=== PATIENT | female | born 1965 | race Caucasian/White ===

== ENCOUNTER → 2019-09-23 13:03 | Outpatient (CLI) | payer MEDICAID, SELFPAY ==
[2019-09-23 09:16] VITALS: BMI 48.6
--- NOTE | 2019-09-23 10:00 | EMB_PTH ---
PATIENT: YOLY KIDD LOC: [facility] U#:[id number] AGE/SX: 60/F ROOM: RE09/23/[address]: MAEVE Kruse : 1965 BED: DIS: SPEC #: [id number] RECD: 09/23/19 12:46 STATUS: KIM EDGARD #: [id number] ELIN: 09/23/19 10:[address]: Izabela Cooper NP DEPT: SURGICAL PATHOLOGY RECD BY: Pool Fleming ENTERED: 09/24/19 09:13 SP TYPE: ENDOM BX/C KISHA DR: Dr. Carolynn Huntley MD Tissues: Endometrium, NOS Procedures: Surgery Specimen Level IV HEADER OPERATION: Endometrial biopsy PRE-OP DIAGNOSIS: Abnormal uterine bleeding TISSUE SUBMITTED: Endometrial lining MICROSCOPIC DIAGNOSIS Endometrium, biopsy: Simple cystic hyperplasia without atypia. Focal stromal breakdown. AM:saritha 09/25/19 MICROSCOPIC DESCRIPTION Slides are reviewed. GROSS DESCRIPTION Received is one container labeled with the patient's name and not further designated. The specimen consists of multiple irregular fragments of abbasi-pink soft tissue that in aggregate measure 3 x 2.5 x 0.2 cm. The specimen is totally submitted in one cassette. / SJ:saritha 09/24/19 TC:5 CPT: 64397
[2019-09-25 03:38] LABS: HPV APTIMA, High Risk Negative (Negative)
== END ==
PROVIDERS: PCP Pediatrics; Visit Provider Nurse Practitioner Women's Health
DX: Z12.4 Encounter for screening for malignant neoplasm of cervix (principal); N93.9 Abnormal uterine and vaginal bleeding, unspecified
CPT/HCPCS: 87624; 88175; 88305; G0145

== ENCOUNTER → 2019-09-30 13:15 | Outpatient (CLI) | payer MEDICAID, SELFPAY ==
[2019-09-23 09:16] VITALS: BMI 48.6
--- NOTE | 2019-09-30 13:17 | US_ITS ---
STUDY: ULTRASOUND TRANSVAGINAL CLINICAL: Female, 54 years old. Postmenopausal bleeding. TECHNIQUE: Transvaginal COMPARISON: None. FINDINGS: Normal uterine size measuring 9.0 cm in maximal craniocaudal dimension. Within the anterior uterine fundus there is a 1.8 x 1.9 x 1.3 cm well-circumscribed round echogenic focus that demonstrates mild internal vascularity. Normal endometrial thickness measuring 8.7 mm and is hyperechoic. There are no endometrial masses, and there is no fluid in the endometrial cavity. Normal uterine cervix. There is nonvisualization of the ovaries. There is no free fluid in the pelvis. US/Transvaginal Non- IMPRESSION: Thickened endometrial stripe. 1.8 x 1.9 x 1.3 cm round intramural soft tissue focus within the uterine fundus which may reflect a lipoma leiomyoma or a leiomyoma. Nonvisualization of the ovaries. Electronically Signed: Maddie Pulliam MD at 20:32 EDT Tel , Service support ,
--- NOTE | 2019-09-30 13:17 | BI_ITS ---
MAMMOGRAPHY - BILATERAL SCREENING REASON FOR EXAM: Female, 54 years old. Routine annual screening examination. PERTINENT HISTORY: Non-contributory. TECHNIQUE: Digital bilateral breast collins (3D mammographic acquisition) in the CC and MLO projections. 2-D mediolateral oblique (MLO) and craniocaudad (CC) views of both breasts were obtained. CAD: Full Field Digital Mammography with Computer Added Detection was performed. COMPARISON: None. Baseline examination. FINDINGS: Breast Composition: The breasts are almost entirely fatty. There are no dominant masses or suspicious calcifications. Scattered benign-appearing calcifications. No other significant abnormalities are identified. BI/SCREEN MAMM (CAD) W/COLLINS BILAT IMPRESSION: Negative screening mammogram. Yearly followup mammogram recommended. (A) ASSESSMENT CATEGORY: BIRADS Category 1: Negative. A letter regarding these results will be sent to the patient by the facility within 30 days. Approximately 10% of breast cancers are not detected by mammography. A normal mammogram should not delay biopsy of a clinically suspicious abnormality. [id number] Electronically Signed: Rajan Dominguez, at 15:10 EDT , Service support ,
== END ==
PROVIDERS: PCP Pediatrics; Referring Provider Nurse Practitioner Women's Health; Visit Provider Nurse Practitioner Women's Health
DX: Z12.31 Encounter for screening mammogram for malignant neoplasm of breast (principal); N95.0 Postmenopausal bleeding
CPT/HCPCS: 76830; 77063; 77067

== ENCOUNTER → 2019-11-04 | Outpatient (CLI) | payer MEDICAID, SELFPAY ==
[2019-11-02 13:14] VITALS: BMI 48.2
[2019-11-04 16:23] LABS: Absolute Lymphocyte Count 2.71 X10^3/uL (0.83-4.51); Absolute Neutrophil Count 7.1 X10^3/uL (2.0-7.7); Basophil# 0.04 X10^3/uL; Basophil% 0.4 % (0-1); Eosinophil# 0.27 X10^3/uL; Eosinophils% 2.5 % (0-5); Hematocrit 40.6 % (37-47); Hemoglobin 13.3 g/dL (12.0-15.0); Lymphocyte # 2.71 X10^3/ul (4.0); Lymphocyte % 25.5 % (19-41); Mean Corp Hgb Conc 32.8 g/dL (32-36); Mean Corpuscular Hgb 28.1 pg (27.0-32.0); Mean Corpuscular Volume 85.7 fL (81-99); Mean Platelet Vol. 8.9 fl (6.2-12.0); Monocyte# 0.47 X10^3/uL; Monocyte% 4.4 % (0-10); NRBC Flagged by Analyzer 0 % (0-5); Neutrophil # 7.09 X10^3/uL (2.7-7.7); Neutrophil % 66.7 % (47-70); Platelet Count 308 K/mm3 (150-450); RBC Distribution Width CV 11.9 % (11.6-14.6); RBC Distribution Width SD 36.5 fl (35.1-43.9); Red Blood Count 4.74 M/mm3 (4.2-5.4); White Blood Count 10.6 K/mm3 (4.4-11.0)
== END | disposition home or self-care (01) ==
LOC: LAB 15:56
PROVIDERS: PCP Pediatrics; Referring Provider Obstetrics & Gynecology; Visit Provider Obstetrics & Gynecology
DX: Z01.818 Encounter for other preprocedural examination (principal)
CPT/HCPCS: 36415; 85025; 86850; 86900; 86901

== ENCOUNTER 2019-11-10 07:05 | Day surgery (SDC) | payer MEDICAID, SELFPAY ==
[2019-09-23 09:16] VITALS: BMI 48.6
[2019-11-02 13:14] VITALS: BMI 48.2
[2019-11-10] VITALS (7 sets, daily range): BP systolic 117–164; BP diastolic 72–90; PULSE 73–90; RESP 16–18; TEMP 35.9–36.9; O2SAT 92–98; BMI 47.7
--- NOTE | 2019-11-10 | EMB_PTH ---
PATIENT: YOLY KIDD [place] [facility] [place][id number] AGE/SX: 54/F ROOM: RE11/10/[address]: Dr. Angela See MD : 1965 BED: DIS: 11/10/2019 SPEC #: [id number] RECD: 11/10/19 11:59 STATUS: KIM EDGARD #: [id number] ELIN: 11/10/19 00:[address]: Angela See DEPT: SURGICAL PATHOLOGY RECD BY: Daniel Alexander ENTERED: 11/10/19 11:59 SP TYPE: ENDOM BX/C KISHA DR: Dr. Carolynn Huntley MD Tissues: Endometrium, NOS Procedures: Surgery Specimen Level IV HEADER OPERATION: Hysteroscopy, D & C PRE-OP DIAGNOSIS: Postmenopausal bleeding, cystic endometrial hyperplasia TISSUE SUBMITTED: Endometrial curettings MICROSCOPIC DIAGNOSIS Endometrial curettings: Proliferative endometrium. See comment. TONI:saritha 11/11/19 COMMENT Please make reference to previous specimen ([id number]) endometrium, biopsy with diagnosis of simple cystic hyperplasia without atypia and focal stromal breakdown. Slides are reviewed again. Case has been reviewed in consultation with Dr. Deal who concurs with the above diagnosis. IDC:AM MICROSCOPIC DESCRIPTION Slides are reviewed. GROSS DESCRIPTION Received in fixative is one container labeled with the patient's name and designated endometrial curettings. The specimen consists of multiple fragments of hemorrhagic soft tissue mixed with blood clot that in aggregate measure 3 x 2.5 x 0.3 cm. The specimen is totally submitted in one cassette. / TONI:saritha 11/10/19 TC:5 CPT: 90234
--- NOTE | 2019-11-10 04:32 | HP.PCM_ITS ---
- Problem List (1) Cystic endometrial hyperplasia Status: Acute Comment: without atypia (2) Postmenopausal bleeding Status: Acute Comment: US done, abnl biopsy. plan d and c hysteroscopy. declines IUD plan Aygestin after surgery (3) Fatty liver Status: Acute (4) Asthma Status: Acute (5) Migraine headache without aura Status: Acute (6) DM type 2 (diabetes mellitus, type 2) Status: Acute History and Physical Date of Admission: 11/10/19 Intake Vital Signs 11/02/19 Height 5 ft 5 in 11/02/19 Weight: 290 lb 2 oz 11/02/19 BMI 48.2 11/02/19 BP 168/92 H 11/02/19 BMI 48.6 Intake Visit Reasons: pr eop Piecer Required: No Is patient in pain?: No Allergies acetaminophen [From Vicodin] Adverse Reaction (Severe, Verified 11/02/19 13:14) extreme migraine hydrocodone [From Vicodin] Adverse Reaction (Severe, Verified 11/02/19 13:14) extreme migraine aluminum Adverse Reaction (Intermediate, Verified 11/02/19 13:14) GI pain/rash codeine Adverse Reaction (Intermediate, Verified 11/02/19 13:14) headache/nausea cefaclor [From Ceclor] Adverse Reaction (Unknown, Verified 11/02/19 13:14) unknown guaifenesin [From G Tussin AC] Adverse Reaction (Unknown, Verified 11/02/19 13:14) unknown oxycodone Adverse Reaction (Verified 11/02/19 13:14) headache/nausea Medications glimepiride 2 mg tablet 2 mg PO DAILY 09/23/19 [History Confirmed 11/02/19] ketorolac 0.5 % eye drops 1 drp OPHTHALMIC Q6H 09/23/19 [History Confirmed 10/05 01/23] liraglutide 0.6 mg/0.1 mL (18 mg/3 mL) subcutaneous pen injector 0.6 mg SC DAILY 09/23/19 [History Confirmed 11/02/19] liraglutide 0.6 mg/0.1 mL (18 mg/3 mL) subcutaneous pen injector 1.2 mg SC DAILY 09/23/19 [History Confirmed 11/02/19] metformin 1,000 mg tablet 1,000 mg PO BID 09/23/19 [History Confirmed 11/02/19] prednisolone acetate 1 % eye drops,suspension 1 drp OPHTHALMIC TID 09/23/19 [History Confirmed 11/02/19] atorvastatin 10 mg tablet 10 mg PO DAILY 11/02/19 [History Confirmed 11/02/19] Post menopausal: No Patient : No : No PFSH Medical History ACL (anterior cruciate ligament) tear (Acute) ARF (acute renal failure) (Acute) Asthma (Acute) delivery delivered (Acute) Diabetes type 2, controlled (Acute) Fatty liver (Acute) Fatty tumor (Acute) Migraine (Acute) Right ankle injury (Acute) Surgical History H/O arthroscopic knee surgery (Acute) History of appendectomy (Acute) History of meniscectomy of left knee (Acute) History of tonsillectomy and adenoidectomy (Acute) Social History (Updated 11/02/19 @ 13:[address] Angela See MD) number of children: 3 current occupational status: unemployed Smoking Status: Never smoker alcohol intake: current alcohol intake frequency: holidays/special occasions only substance use type: does not use diet: other seatbelt use: always do you feel safe at home: Yes additional social history: Pts 6 months ago HPI pr eop: Details: YOLY KIDD is a 54 year old who presents for preop visit. she has had irregular bleeding, and had endometrial hyperplasia on an EMB. Female Reproductive History Questions: Sexually active: No Pregancy History 3 Elective abortions Hx Para 3 Spontaneous abortions Hx # Term Pregnancies 3 Ectopic pregnancies Hx # Pregnancies Multiple births # of living children 3 Past Pregnancies Del. Date Name GA/Weeks Outcome Route Bth Weight Gen Labor Lgth Anesthesia Del Locatn Provider FOB Unknown Cata 1992 Unknown Srinivas 1995 Unknown Janet 1997 ROS Const Constitutional: Reports system reviewed and no additional complaints, except as docu Eyes Eyes: Reports system reviewed and no additional complaints, except as docu Cardio Card: Denies chest pain Resp Resp: Denies cough or dyspnea GI GI: Denies abdominal pain or change in bowel habits : Reports as per HPI; denies nipple discharge Skin Skin/Breast: Denies change in hair, breast lump, breast pain, breast skin changes or nipple discharge Exam Const General: cooperative Nutritional Appearance: obese Orientation: oriented x3 [facility] Head: normal to inspection, normocephalic Ears: hearing grossly normal bilaterally, external ears normal Nose: external nose normal, nares normal Face and sinus: normal facial exam Neck Neck: normal visual inspection, trachea midline Thyroid: thyroid normal Chest Chest palpation & inspection: normal inspection of the chest Resp Effort & Inspection: normal respiratory effort Auscultation: clear to auscultation bilaterally Cardio Rate: regular rate Rhythm: regular rhythm Heart Sounds: S1 normal, S2 normal GI Inspection: normal to inspection, non-distended Palpation: soft, no hepatosplenomegaly General: bladder normal to palpation External Female Exam: normal external appearance, normal appearance of the ur ethra Urethra: normal appearance of the urethra, normal palpation, no discharge Speculum Exam - Vagina: normal appearance of the vagina (small amount dark blood in vault) Speculum Exam - Cervix: normal appearance of the cervix Bimanual Exam- Vagina & Uterus: normal bimanual exam, uterine size normal (but difficult to assess due to body habitus), bladder normal to palpation Bimanual Exam- Adnexa, other: normal adnexae, pelvic support normal Pelvic Support: normal Musc Cervical Spine: other Other: gross motor intact no deficits, full bilateral strength Skin General: no rashes or lesions noted Neuro General: alert, awake, moves all extremities, no focal motor deficits Motor: muscle tone normal throughout Extrem General: normal to inspection, no pedal edema Psych Appearance: grossly normal Mental Status: mental status grossly normal Affect: normal affect Speech and Movement: speech and movement normal Assessment & Plan Problems 1. Postmenopausal bleeding N95.0 US done, abnl biopsy. plan d and c hysteroscopy. declines IUD plan Aygestin after surgery 2. Cystic endometrial hyperplasia N85.00 without atypia Plan Problem list updated and treatment plans were reviewed with the patient and relevant educational handouts given. See problem list details for specific plan information. After discussing the patient's diagnosis and treatment plan options, patient wishes to proceed with surgical management. I have discussed with the patient the risks, benefits, and alternatives of the procedure which include but are not limited to risks of anesthesia, bleeding, infection, possible damage to bowel, bladder, or surrounding vasculature which could lead to additional surgery to evaluate any complications. Patient agrees to procedure and wishes to proceed. ACOG/uptodate references given for additional information regarding procedure. Coding Level of Care Code No Charge Diagnoses Postmenopausal bleeding N95.0 Cystic endometrial hyperplasia N85.00 UPDATE- I have seen the patient and performed any clinically relevant updates to the history and physical exam. Angela See MD
[2019-11-10] MEDS: Lactated Ringers 1,000 ML 100 ML IV (07:44)
--- NOTE | 2019-11-10 07:48 | PCM.OPRPT ---
Problem List (1) Cystic endometrial hyperplasia Status: Acute Comment: without atypia (2) Postmenopausal bleeding Status: Acute Comment: US done, abnl biopsy. plan d and c hysteroscopy. declines IUD plan Aygestin after surgery (3) Fatty liver Status: Acute (4) Asthma Status: Acute (5) Migraine headache without aura Status: Acute (6) DM type 2 (diabetes mellitus, type 2) Status: Acute Report of Operation Date of Procedure: 11/10/19 Pre-Operative Diagnosis: endometrial hyperplasia Post-Operative Diagnosis: same Surgery/Procedure Performed:: d and c hysteroscopy Description of Surgical Findings:: polypoid lining Type of Anesthesia:: Local MAC Special Medications: none Specimen's removed: emc Drains: none Estimated Blood Loss (mL): minimal Fluids Replaced: crystalloid Description of Procedure: Patient was prepped and draped in a normal sterile fashion under MAC anesthesia. A weighted speculum was placed in the vagina and the anterior lip of the cervix was grasped with a single-tooth tenaculum. A paracervical block was placed with 1% lidocaine. Cervix was progressively dilated to allow passage of a 5 mm hysteroscope. The lining was fully visualized and noted to have a thickened polypoid appearance no gross abnormalities . Uterine sounded to 8 cm. significant uterine descent and good vaginal access, moderate cystocele noted. Curettage was performed and moderate amount of tissue removed , sent to pathology. All instruments were removed from the vagina and excellent hemostasis was noted. Patient was awoken and taken to recovery in stable condition. Grafts/Implants Used: none - Admit VTE Documentation VTE Present on Admission: No VTE Mechan Device Prophylaxis: SCD's Multi Select Codes - Urinary/Genital Urinary/Genital CPT Codes: 77546 Non-ob D&C, 60707 Hysteroscopy, diagnostic
--- NOTE | 2019-11-10 07:49 | DCINST_ITS ---
Discharge Diet: No Restrictions Discharge Activity: Return to Normal Activity, May Shower, May Take a Tub Bath Allergies/Adverse Reactions: Allergies empagliflozin [From Jardiance] Allergy (Verified 11/10/19 07:31) Nausea/Vom/Diarrhea nickel Allergy (Verified 11/10/19 07:31) Rash acetaminophen [From Vicodin] Adverse Reaction (Severe, Verified 11/10/19 07:31) extreme migraine hydrocodone [From Vicodin] Adverse Reaction (Severe, Verified 11/10/19 07:31) extreme migraine aluminum Adverse Reaction (Intermediate, Verified 11/10/19 07:31) GI pain/rash codeine Adverse Reaction (Intermediate, Verified 11/10/19 07:31) headache/nausea cefaclor [From Ceclor] Adverse Reaction (Unknown, Verified 11/10/19 07:31) unknown guaifenesin [From G Tussin AC] Adverse Reaction (Unknown, Verified 11/10/19 07:31) unknown butabarbital Adverse Reaction (Verified 11/10/19 07:32) NEEDS FOLLOW-UP oxycodone Adverse Reaction (Verified 11/10/19 07:31) headache/nausea Medications to take at Discharge glimepiride 2 mg tablet 2 mg PO DAILY 09/23/19 metformin 1,000 mg tablet 1,000 mg PO BID 09/23/19 atorvastatin 10 mg tablet 10 mg PO DAILY 11/02/19 Aspirin/Acetaminophen/Caffeine [Excedrin Migraine Caplet] 2 ea PO PRN PRN 11/03/19 Azelastine HCl [Astelin] 1 spray NASAL PRN PRN 11/03/19 Gabapentin [Neurontin] 300 mg PO DAILY 11/03/19 Liraglutide [Victoza] 1.8 mg SQ DAILY 11/03/19 Magnesium Oxide [Mag-Oxide] 500 mg PO DAILY 11/03/19 Multivitamin [Multivitamins] 1 ea PO DAILY 11/03/19 Polyethylene Glycol 400 [Blink Tears] 15 ml OP DAILY 11/03/19 Primary Care Physician: Carolynn Huntley MD [Primary Care Provider] - Test Results: Test results from this visit will be discussed in further detail at your follow- up appointment, if applicable. Please Follow Up With: Angela See MD - [phone]
[2019-11-10 07:55] LABS: Bedside Glucose 160 mg/dL (70-110)
[2019-11-10] MEDS: Ondansetron 4 MG/2 ML Vial IM (08:43)
== END 2019-11-10 10:24 | disposition home or self-care (01) ==
LOC: SDC 07:05 → AC 07:06
PROVIDERS: Anesthesiology; PCP Pediatrics; Referring Provider Obstetrics & Gynecology; Visit Provider Obstetrics & Gynecology
PROC: 0UDB8ZZ Extraction of Endometrium, Via Natural or Artificial Opening Endoscopic (ICD-10-PCS; CPT 58558; principal; 2019-11-10 08:20)
DX: N85.00 Endometrial hyperplasia, unspecified (principal); N95.0 Postmenopausal bleeding; J45.909 Unspecified asthma, uncomplicated; E11.9 Type 2 diabetes mellitus without complications; E66.9 Obesity, unspecified; Z68.42 Body mass index [BMI] 45.0-49.9, adult; E78.00 Pure hypercholesterolemia, unspecified; Z11.59 Encounter for screening for other viral diseases; Z79.84 Long term (current) use of oral hypoglycemic drugs; Z79.899 Other long term (current) drug therapy
CPT/HCPCS: 00952; 58558; 82962; 87635; 88305; G2023; J7120; J2405; U0003

== ENCOUNTER → 2020-08-18 | Outpatient (CLI) | payer MEDICAID, SELFPAY ==
--- NOTE | 2020-08-18 | EMB_PTH ---
PATIENT: YOLY KIDD LOC: [facility] U#:[id number] AGE/SX: 55/F ROOM: RE08/18/[address]: Dr. Angela See MD : 1965 BED: DIS: 08/18/2020 SPEC #: [id number] RECD: 08/18/20 16:28 STATUS: KIM EDGARD #: [id number] ELIN: 08/18/20 00:[address]: Angela See DEPT: SURGICAL PATHOLOGY RECD BY: Malgorzata Peck ENTERED: 08/19/20 07:00 SP TYPE: ENDOM BX/C KISHA DR: Dr. Carolynn Huntley MD Tissues: Endometrium, NOS Procedures: Surgery Specimen Level IV HEADER OPERATION: Endometrial biopsy PRE-OP DIAGNOSIS: Cystic endometrial hyperplasia TISSUE SUBMITTED: Endometrial biopsy MICROSCOPIC DIAGNOSIS Endometrial biopsy: Scant strips of benign endometrial epithelium. Negative for hyperplasia. See comment. TONI:saritha 08/22/2020 COMMENT Clinical correlation and appropriate follow up are necessary. Please make reference to previous specimens ([id number]) endometrium, biopsy with diagnosis of simple cystic hyperplasia without atypia and focal stromal breakdown and ([id number]) endometrial curettings with diagnosis of proliferative endometrium. MICROSCOPIC DESCRIPTION Slides are reviewed. GROSS DESCRIPTION Received is one container labeled with the patient's name and not further designated. The specimen consists of a scant amount of soft tissue. The specimen is totally submitted for cell block preparation. / TONI:saritha 08/19/20 TC:4 CPT: 35510
[2020-08-18 15:09] VITALS: BMI 43.3
== END | disposition home or self-care (01) ==
LOC: LABSPEC 16:28
PROVIDERS: PCP Pediatrics; Referring Provider Obstetrics & Gynecology; Visit Provider Obstetrics & Gynecology
DX: N85.00 Endometrial hyperplasia, unspecified (principal)
CPT/HCPCS: 88305

== ENCOUNTER → 2021-03-02 | Outpatient (CLI) | payer MEDICAID, SELFPAY ==
--- NOTE | 2021-03-02 | EMB_PTH ---
PATIENT: YOLY KIDD LOC: [facility] U#:[id number] AGE/SX: 56/F ROOM: RE03/02/[address]: Dr. Angela See MD : 1965 BED: DIS: 03/02/2021 SPEC #: [id number] RECD: 03/02/21 13:43 STATUS: KIM REJessica #: [id number] ELIN: 03/02/21 00:[address]: Angela See DEPT: SURGICAL PATHOLOGY RECD BY: Jennifer Mckeon ENTERED: 03/03/21 07:39 SP TYPE: ENDOM BX/C KISHA DR: Dr. Carolynn Huntley MD Tissues: Endometrium, NOS Procedures: Surgery Specimen Level IV HEADER OPERATION: Endometrial biopsy PRE-OP DIAGNOSIS: Cyst endometrial hyperplasia TISSUE SUBMITTED: Endometrial biopsy MICROSCOPIC DIAGNOSIS Endometrial biopsy: Strips of benign endometrial epithelium and scant fragment of superficial benign endometrial tissue, consistent with atrophic endometrium. Negative for hyperplasia. See comment. SJ:rg 03/06/2021 COMMENT Please make reference to previous specimens ([id number]) endometrial biopsy with diagnosis of ?scant strips of benign endometrial epithelium, negative for hyperplasia? and ([id number]) endometrial biopsy with diagnosis of ?simple cystic hyperplasia without atypia? and ([id number]) endometrial curettings with diagnosis of ?proliferative endometrium? MICROSCOPIC DESCRIPTION Slides are reviewed. GROSS DESCRIPTION Received is one container labeled with the patient's name and not further designated. The specimen consists of multiple irregular fragments of abbasi mucoid tissue that in aggregate measure 0.5 x 0.5 x 0.1 cm. The specimen is totally submitted in one cassette. / TONI:saritha 03/03/21 TC:4 CPT: 72152
== END | disposition home or self-care (01) ==
LOC: LABSPEC 14:07
PROVIDERS: PCP Pediatrics; Referring Provider Obstetrics & Gynecology; Visit Provider Obstetrics & Gynecology
DX: N85.8 Other specified noninflammatory disorders of uterus (principal)
CPT/HCPCS: 88305

== ENCOUNTER → 2022-02-06 | Outpatient (CLI) | payer MEDICAID, SELFPAY ==
--- NOTE | 2022-02-06 10:33 | BI_ITS ---
MAMMOGRAPHY - BILATERAL SCREENING REASON FOR EXAM: Female, 57 years old. Routine annual screening examination. PERTINENT HISTORY: Non-contributory. TECHNIQUE: Digital bilateral breast collins (3D mammographic acquisition) in the CC and MLO projections. 2-D mediolateral oblique (MLO) and craniocaudad (CC) views of both breasts were obtained. CAD: Full Field Digital Mammography with Computer Added Detection was performed. COMPARISON: Comparison is made with prior study dated 09/30/2019. FINDINGS: Breast Composition: The breasts are almost entirely fatty. There are no dominant masses or suspicious calcifications. No other significant abnormalities are identified. There has been no significant change since the prior study. BI/SCRN MAMM (CAD)W/COLLINS BILAT IMPRESSION: Stable bilateral screening mammogram. Yearly follow-up mammogram recommended. (A) ASSESSMENT CATEGORY: BIRADS Category 1: Negative. A letter regarding these results will be sent to the patient by the facility within 30 days. Approximately 10% of breast cancers are not detected by mammography. A normal mammogram should not delay biopsy of a clinically suspicious abnormality. [id number] Electronically Signed: Rajan Dominguez MD at 13:16 EDT ,
== END | disposition home or self-care (01) ==
LOC: OPBI 10:31
PROVIDERS: PCP Pediatrics; Visit Provider Obstetrics & Gynecology
DX: Z12.31 Encounter for screening mammogram for malignant neoplasm of breast (principal)
CPT/HCPCS: 77063; 77067

== ENCOUNTER → 2022-03-19 | Outpatient (CLI) | payer MEDICAID, SELFPAY ==
[2022-03-19 11:11] LABS: Hematocrit 41.7 % (37-47); Mean Corp Hgb Conc 33.6 g/dL (32-36); Mean Corpuscular Hgb 27.7 pg (27.0-32.0); Mean Corpuscular Volume 82.4 fL (81-99); Mean Platelet Vol. 8.6 fl (6.2-12.0); Platelet Count 287 K/mm3 (150-450); RBC Distribution Width CV 11.4 % (11.6-14.6); RBC Distribution Width SD 34.1 fl (35.1-43.9); Red Blood Count 5.06 M/mm3 (4.2-5.4); White Blood Count 9.6 K/mm3 (4.4-11.0)
[2022-03-19 11:29] LABS: Anion Gap 4 (5-15); BUN 9 mg/dL (7-18); BUN/Creat Ratio 12.8 RATIO (10-20); Calcium,Total 9.3 mg/dL (8.5-10.1); Chloride 105 mmol/L (98-107); EST Glomerular Filtration Rate 92 mL/min (>60); Est Glom Filt Rate - Afr Amer 111 mL/min (>60); Glucose 141 mg/dL (74-106); Potassium 4.2 mmol/L (3.5-5.1); Sodium Level 138 mmol/L (136-145)
[2022-03-26 16:46] LABS: HPV Reflexed? NOT INDICATED
== END | disposition home or self-care (01) ==
PROVIDERS: PCP Pediatrics; Visit Provider Obstetrics & Gynecology
DX: N95.0 Postmenopausal bleeding (principal); E11.9 Type 2 diabetes mellitus without complications; Z12.4 Encounter for screening for malignant neoplasm of cervix; N89.8 Other specified noninflammatory disorders of vagina
CPT/HCPCS: 80048; 83036; 85027; 87070; 87077; 87086; 87088; 87186; 87205; 88175; G0145

== ENCOUNTER → 2022-03-21 | Outpatient (CLI) | payer MEDICAID, SELFPAY ==
--- NOTE | 2022-03-21 11:39 | US_ITS ---
STUDY: ULTRASOUND OF THE FEMALE PELVIS - COMPLETE REASON FOR EXAM: Female, 57 years old. aub -- SPOTTING- POST MENOPAUSAL BLEEDING -- NO CYCLE FOR A FEW YEARS, NOW SPOTTING -- HC OF D and amp;C 2019 LMP: Postmenopausal TECHNIQUE: Transabdominal and Transvaginal TECHNICAL QUALITY: Adequate. COMPARISON: Pelvic ultrasound September 30, 2019 FINDINGS: The uterus is anteverted and is in a midline position. The uterus measures 9.2 x 5.2 x 3 cm. Normal uterine cervix. The endometrium measures 5 mm in thickness, and is hyperechoic. There is no demonstrated endometrial mass. 1.6 x 1.7 x 1.3 cm heterogeneous fibroid. I.U.D. - The patient does not have an I.U.D. hypoechoic nodule with posterior enhancement measuring 6 x 5 x 5 mm. Right ovary not visualized. The left ovary is visualized. The left ovary measures 1.6 x 1.7 x 1.6 cm. There is no left ovarian cyst or ovarian mass. There is no visualized left adnexal mass or complex lesion. There is normal arterial and normal venous vascularity. There is no fluid in the cul-de-sac. The pre void volume of the bladder was 642 ml. Polycystic ovary disease: No. US/Pelvic (Non ) IMPRESSION: Uterine fibroid. Right ovary not visualized. Cervical nodule requires clinical correlation/pelvic exam. Electronically Signed: Darshan Corona MD at 17:45 EST ,
== END | disposition home or self-care (01) ==
LOC: US 11:38
PROVIDERS: PCP Pediatrics; Visit Provider Obstetrics & Gynecology
DX: N95.0 Postmenopausal bleeding (principal)
CPT/HCPCS: 76830; 76856

== ENCOUNTER 2022-04-17 11:27 | Day surgery (SDC) | payer MEDICAID, SELFPAY ==
--- NOTE | 2022-04-12 09:07 | EKG12_ITS ---
Test Reason : PREOP Blood Pressure : / mmHG Vent. Rate : 087 BPM Atrial Rate : 087 BPM P-R Int : 150 ms QRS Dur : 078 ms QT Int : 338 ms P-R-T Axes : 039 -19 029 degrees QTc Int : 406 ms Normal sinus rhythm Normal ECG Confirmed by KIM LOUIS, SULAIMAN ([id number]), editorial specialist RIMMA DE PAZ ([id number]) on 04/12/2022 2:09:04 PM Referred By: Angela See Confirmed By:KIM ALVAREZ MD
[2022-04-12 10:00] LABS: Absolute Lymphocyte Count 2.44 X10^3/uL (0.83-4.51); Absolute Neutrophil Count 6.8 X10^3/uL (2.0-7.7); Basophil# 0.04 X10^3/uL; Basophil% 0.4 % (0-1); Eosinophil# 0.29 X10^3/uL; Eosinophils% 2.8 % (0-5); Hematocrit 42.7 % (37-47); Hemoglobin 14.1 g/dL (12.0-15.0); Lymphocyte # 2.44 X10^3/ul (0.83-4.51); Lymphocyte % 23.9 % (19-41); Mean Corpuscular Hgb 27.5 pg (27.0-32.0); Mean Corpuscular Volume 83.4 fL (81-99); Mean Platelet Vol. 8.9 fl (6.2-12.0); Monocyte# 0.57 X10^3/uL; Monocyte% 5.6 % (0-10); NRBC Flagged by Analyzer 0 % (0-5); Neutrophil # 6.79 X10^3/uL (2.7-7.7); Neutrophil % 66.7 % (47-70); Platelet Count 298 K/mm3 (150-450); RBC Distribution Width CV 11.7 % (11.6-14.6); RBC Distribution Width SD 35.2 fl (35.1-43.9); Red Blood Count 5.12 M/mm3 (4.2-5.4); White Blood Count 10.2 K/mm3 (4.4-11.0)
[2022-04-12 10:44] LABS: ALB/GLOB Ratio 0.8 RATIO (0.9-2.4); AST(SGOT) 22 U/L (15-37); Alanine Aminotransfer ALT/SGPT 55 U/L (13-56); Albumin, Serum 3.4 g/dL (3.2-5.0); Alkaline Phosphatase 120 U/L (45-117); Anion Gap 7 (5-15); BUN 12 mg/dL (7-18); BUN/Creat Ratio 14.9 RATIO (10-20); Calcium,Total 9.3 mg/dL (8.5-10.1); Chloride 102 mmol/L (98-107); EST Glomerular Filtration Rate 79 mL/min (>60); Est Glom Filt Rate - Afr Amer 95 mL/min (>60); Glucose 200 mg/dL (74-106); Potassium 4.2 mmol/L (3.5-5.1); Protein, Total 7.4 g/dL (6.4-8.2); Sodium Level 135 mmol/L (136-145)
[2022-04-17] VITALS (7 sets, daily range): BP systolic 103–147; BP diastolic 69–92; PULSE 74–90; RESP 16–18; TEMP 36.6–37.1; O2SAT 92–97; BMI 46.2
[2022-04-17 12:22] LABS: Internal QC Validated? YES +Cl - CLEAR BKGD; Pregnancy, Urine Negative Negative
[2022-04-17 12:42] LABS: Absolute Lymphocyte Count 2.49 X10^3/uL (0.83-4.51); Absolute Neutrophil Count 6.3 X10^3/uL (2.0-7.7); Basophil# 0.05 X10^3/uL; Basophil% 0.5 % (0-1); Eosinophil# 0.32 X10^3/uL; Eosinophils% 3.3 % (0-5); Hematocrit 42.7 % (37-47); Lymphocyte # 2.49 X10^3/ul (0.83-4.51); Lymphocyte % 25.7 % (19-41); Mean Corp Hgb Conc 32.8 g/dL (32-36); Mean Corpuscular Hgb 27.2 pg (27.0-32.0); Mean Corpuscular Volume 82.9 fL (81-99); Mean Platelet Vol. 8.7 fl (6.2-12.0); Monocyte# 0.53 X10^3/uL; Monocyte% 5.5 % (0-10); NRBC Flagged by Analyzer 0 % (0-5); Neutrophil # 6.25 X10^3/uL (2.7-7.7); Neutrophil % 64.4 % (47-70); Platelet Count 294 K/mm3 (150-450); RBC Distribution Width CV 11.7 % (11.6-14.6); RBC Distribution Width SD 35.3 fl (35.1-43.9); Red Blood Count 5.15 M/mm3 (4.2-5.4); White Blood Count 9.7 K/mm3 (4.4-11.0)
[2022-04-17 12:56] LABS: Mucous, Urine 0 SEEN /hpf (<or=2+); Red Blood Cells-Urine 0 SEEN /hpf (0-5)
[2022-04-17 13:10] LABS: Bedside Glucose 189 mg/dL (74-106)
--- NOTE | 2022-04-17 13:10 | EMB_PTH ---
PATIENT: YOLY KIDD LOC: [facility] – [place] U#:[id number] AGE/SX: 57/F ROOM: RE04/17/[address]: Dr. Angela See MD : 1965 BED: DIS: 04/17/2022 SPEC #: [id number] RECD: 04/17/22 14:56 STATUS: KIM REJessica #: [id number] ELIN: 04/17/22 13:[address]: Angela See DEPT: SURGICAL PATHOLOGY RECD BY: Malgorzata Peck ENTERED: 04/18/22 09:39 SP TYPE: ENDOM BX/C OTHR DR: MD Dr. Carolynn Montero MD Tissues: Endometrium, NOS Procedures: Surgery Specimen Level IV HEADER OPERATION: Hysteroscopy, dilation and curettage PRE-OP DIAGNOSIS: Abnormal uterine bleeding TISSUE SUBMITTED: Endometrial curettings MICROSCOPIC DIAGNOSIS Endometrial curettings: Proliferative endometrium. Fragments of benign ecto- and endocervical epithelium. See comment. TONI:saritha 04/19/2022 COMMENT Clinical correlation and appropriate follow up are necessary. Please make reference to previous specimen ([id number]) endometrial biopsy with diagnosis of ?simple cystic hyperplasia without atypia. MICROSCOPIC DESCRIPTION Slides are reviewed. GROSS DESCRIPTION Received in fixative is one container labeled with the patient's name and designated endometrial curettings. The specimen consists of multiple fragments of hemorrhagic soft tissue that in aggregate measure 2.5 x 2 x 0.1 cm. The specimen is totally submitted in one cassette. / TONI:saritha 04/18/2022 TC: CPT: 55524
[2022-04-17 13:12] LABS: Color, Urine Yellow (Yellow); Glucose, Dipstick Normal (Normal); Ketone-Dipstick 5 mg/dl (Negative); Leukocyte Esterase-Dipstick 100 /ul (Negative); Nitrite-Dipstick Negative (Negative); Occult Blood-Urine 25 /ul (Negative); Protein-Dipstick 15 mg/dl (Negative); Urine Bilirubin Dipstick Negative (Negative); Urine Clarity Clear (Clear); Urine Urobilinogen Normal (Normal)
[2022-04-17 13:25] LABS: Bacteria 1+ /hpf (None Seen); Squamous Epithelial Cells - UA 0-5 SEEN /hpf (5-10); White Blood Cells 10-25 SEEN /hpf (0-5)
[2022-04-17] MEDS: Lidocaine 1% (30 ml sdv) 30 ML Vial (14:01)
--- NOTE | 2022-04-17 14:08 | HP.PCM_ITS ---
HPI - General HPI Narrative YOLY KIDD, is a 57 F who presents for d and c hysteroscopy for history of hyperplasia and having posmenopausal bleeding. co persistent uti symptoms. [facility] Medical History (Updated 04/11/22 @ 11:07 by Faina Otto) ACL (anterior cruciate ligament) tear Ambulates with cane ARF (acute renal failure) Asthma Cardiology follow-up encounter delivery delivered Diabetes Diabetes type 2, controlled Easy bruising Fatty liver Fatty tumor Heartburn High cholesterol History of IBS Loss of hearing Migraine Non-smoker Osteoarthritis Rheumatoid arthritis Right ankle injury Walker as ambulation aid Wears glasses Home Medications metformin 1,000 mg tablet 1,000 mg PO BID 09/23/19 [History Last Taken Unknown] azelastine 137 mcg (0.1 %) nasal spray aerosol 1 spray NASAL PRN PRN Swelling 11/03/19 [History Last Taken Unknown] glimepiride 2 mg tablet 4 mg PO DAILY 11/23/19 [History Last Taken Unknown] liraglutide 0.6 mg/0.1 mL (18 mg/3 mL) subcutaneous pen injector 1.8 mg subcut DAILY 11/23/19 [History Last Taken Unknown] cetirizine 10 mg tablet 10 mg PO DAILY 04/11/22 [History Last Taken Unknown] clobetasol 0.05 % lotion 1 applic topical 4X/DAY 04/11/22 [History Last Taken Unknown] ubrogepant 100 mg tablet (Ubrelvy) 100 mg PO PRN PRN Headache 04/11/22 [History Last Taken Unknown] Allergy/AdvReac Type Severity Reaction Status Date / Time ciprofloxacin [From Cipro] Allergy Other Verified 04/17/22 12:38 empagliflozin Allergy Nausea/Vom/ Verified 04/17/22 12:38 [From Jardiance] Diarrhea levofloxacin [From Levaquin] Allergy Other Verified 04/17/22 12:38 metoprolol Allergy Chest Verified 04/17/22 12:38 tightness nickel Allergy Rash Verified 04/17/22 12:38 hydrocodone [From Vicodin] AdvReac Severe extreme Verified 04/17/22 12:38 migraine aluminum AdvReac Intermediate GI Verified 04/17/22 12:38 pain/rash codeine AdvReac Intermediate headache/na Verified 04/17/22 12:38 usea cefaclor [From Ceclor] AdvReac Unknown unknown Verified 04/17/22 12:38 guaifenesin AdvReac Unknown unknown Verified 04/17/22 12:38 [From Sudha JESUS] butabarbital AdvReac NEEDS Verified 04/17/22 12:38 FOLLOW-UP oxycodone AdvReac headache/na Verified 04/17/22 12:38 usea Sulfa (Sulfonamide AdvReac Swelling Verified 04/17/22 12:38 Antibiotics) triptans Allergy Mild flushed Uncoded 04/17/22 12:38 Family History Father Blood clot in vein Lung cancer CVA (cerebral vascular accident) Mother Diabetes Hypertension Hyperlipidemia Grandfather Colon cancer Surgical History (Updated 04/11/22 @ 10:45 by Faina Otto) H/O arthroscopic knee surgery History of ankle surgery History of appendectomy History of meniscectomy of left knee History of repair of ACL History of tonsillectomy and adenoidectomy S/P cholecystectomy S/P dilation and curettage (~11/10/19) Social History number of children: 3 current occupational status: unemployed Smoking Status: Never smoker alcohol intake: current alcohol intake frequency: holidays/special occasions only substance use type: does not use diet: other seatbelt use: always do you feel safe at home: Yes additional social history: ROS Constitutional Constitutional: Reports systems reviewed and no addt'l complaints, except as documented; Denies as per HPI, change in weight, fatigue, fever(s), malaise, weakness or other Eyes Eyes: Reports systems reviewed and no addt'l complaints, except as documented; Denies as per HPI, change in vision or other ENT HEENT: Reports systems reviewed and no addt'l complaints, except as documented Respiratory/Chest Respiratory/Chest: Reports systems reviewed and no addt'l complaints, except as documented Gastrointestinal Gastrointestinal: Reports systems reviewed and no addt'l complaints, except as documented and as per HPI Genitourinary Genitourinary: Reports as per HPI Musculoskeletal Musculoskeletal: Reports systems reviewed and no addt'l complaints, except as documented Neurologic Neurologic: Reports systems reviewed and no addt'l complaints, except as documented Psychiatric Psychiatric: Reports systems reviewed and no addt'l complaints, except as documented Endocrine Endocrinology: Reports systems reviewed and no addt'l complaints, except as documented Hematologic/Lymphatic Hematologic/Lymphatic: Reports systems reviewed and no addt'l complaints, except as documented Vital Signs Vital Signs Vital Signs: 04/17/22 12:40 04/17/22 12:40 Temperature 98.2 F Temperature Source Temporal Pulse Rate 87 Respiratory Rate 16 Respiratory Pattern Normal Blood Pressure 147/89 H Blood Pressure Mean 108 Blood Pressure Source Monitor Blood Pressure Position Semi-Fowlers Blood Pressure Location Left Arm Pulse Ox 97 Oxygen Delivery Method Room Air Weight Weight: 128 kg Body Mass Index (BMI) 46.2 Physical Exam Const alert, oriented x3 and no apparent distress HEENT normocephalic Head and Scalp: atraumatic Eyes EOMs intact bilaterally and conjunctivae normal Neck full ROM, no lymphadenopathy, supple and thyroid normal General: trachea midline Lymph Lymphatic: no lymphadenopathy noted Resp normal respiratory effort, no retractions, no use of accessory muscles and clear to auscultation bilaterally Cardio regular rhythm GI normal to inspection, nondistended, normoactive bowel sounds, soft to palpation, non-distended and no masses Inspection: Negative for abdominal distention Back/Spine no CVA tenderness Extremity normal to inspection Skin no rashes or lesions noted Neuro moves all extremities and deep tendon reflexes 2+ bilaterally Psych mental status grossly normal Results Lab / Micro Data Result Diagrams: 04/17/22 12:25 04/12/22 09:20 Labs: Laboratory Results - last 24 hr 04/17/22 12:10: Urine Test Negative 04/17/22 12:10: Urine Color Yellow, Urine Clarity Clear, Urine pH 5.0, Ur Specific [place] 1.020, Urine Protein 15 H, Urine Glucose (UA) Normal, Urine Ketones 5 H, Urine Occult Blood 25 H, Urine Nitrite Negative, Urine Bilirubin Negative, Urine Urobilinogen Normal, Ur Leukocyte Esterase 100 H, Urine RBC 0 SEEN, Urine WBC 10-25 SEEN, Ur Squamous Epith Cells 0-5 SEEN, Urine Bacteria 1+, Urine Mucus 0 SEEN 04/17/22 12:25: WBC 9.7, RBC 5.15, Hgb 14.0, Hct 42.7, MCV 82.9, MCH 27.2, MCHC 32.8, RDW Std Deviation 35.3, RDW Coeff of Blue 11.7, Plt Count 294, MPV 8.7, Immature Gran % (Auto) 0.600, Neut % (Auto) 64.4, Lymph % (Auto) 25.7, [place] % (Auto) 5.5, Eos % (Auto) 3.3, Baso % (Auto) 0.5, Absolute Neuts (auto) 6.3, Absolute Lymphs (auto) 2.49, Nucleated RBC % 0 04/17/22 12:25: POC Glucose 189 H Assessment & Plan Assessment/Plan (1) Postmenopausal bleeding: (2) Cystic endometrial hyperplasia: PLAN: Plan After discussing the patient's diagnosis and treatment plan options, patient wishes to proceed with surgical management. I have discussed with the patient the risks, benefits, and alternatives of the procedure which include but are not limited to risks of anesthesia, bleeding, infection, possible damage to bowel, bladder, or surrounding vasculature which could lead to additional surgery to evaluate any complications. Patient agrees to procedure and wishes to proceed. ACOG/uptodate references given for additional information regarding procedure.
[2022-04-17] MEDS: Clindamycin 900 MG/50 ML BAG 75 MG IV (14:09)
--- NOTE | 2022-04-17 14:10 | PCM.OPRPT ---
Problems Associated Problem List Diagnoses (1) Postmenopausal bleeding: Report of Operation Date of Procedure: 04/17/22 Pre-Operative Diagnosis: see problem list Post-Operative Diagnosis: same Surgery/Procedure Performed:: D&C hysteroscopy Description of Surgical Findings:: thickened posterior lining naval aircrewman helicopter: None Type of Anesthesia: Local MAC Special Medications: none Specimen's removed: EMC Drains: none Estimated Blood Loss (mL): 50 Fluids Replaced: crystalloid Description of Procedure: Patient was prepped and draped in a normal sterile fashion under MAC anesthesia. A weighted speculum was placed in the vagina and the anterior lip of the cervix was grasped with a single-tooth tenaculum. A paracervical block was placed with 1% lidocaine. Cervix was progressively dilated to allow passage of a 5 mm hysteroscope. The lining was fully visualized and noted to have a thickened posterior lining . Uterine sounded to 8 cm. Curettage was performed and small amount of tissue removed , sent to pathology. All instruments were removed from the vagina and excellent hemostasis was noted. Patient was awoken and taken to recovery in stable condition. Grafts/Implants Used: none Complications none Admit VTE Documentation VTE Present on Admission: No VTE Mechan Device Prophylaxis: SCD's Multi Select Codes Urinary/Genital Urinary/Genital CPT Codes: 76908 Hysteroscopy,EMC, Polypectomy
--- NOTE | 2022-04-17 15:30 | DCINST_ITS ---
Discharge Instructions Procedure D&C Diet Discharge Diet: No restrictions Activity Discharge Activity: Return to Normal Activity, May Shower and May Take a Tub Bath (after 1 week) May resume sexual activity in: 1-2 weeks Weight Bearing Status: Weight bearing as tolerated Lifting Restrictions: none Dressing / Incision Call your doctor if you observe: Fever of 101 or Higher, Using more than 1 pad per hour, Shortness of breath and Uncontrolled pain Follow Up Care Please Follow Up With: Angela See MD When: Call [phone] to schedule appointment. Test Results: Test results from this visit will be discussed in further detail at your follow- up appointment, if applicable. Discharge Plan Admission Attending Provider: Angela See Primary Care Provider: Carolynn Huntley Consulting Providers: Aravind Briscoe Discharge Orders/Prescriptions Prescriptions: No Action metformin 1,000 mg tablet 1,000 mg PO BID glimepiride 2 mg tablet 4 mg PO DAILY azelastine 1 SPRAY aerosol,spray 1 spray NASAL PRN PRN (Reason: Swelling) liraglutide 0.6 mg/0.1 mL (18 mg/3 mL) pen injector 1.8 mg SC DAILY cetirizine 10 mg tablet 10 mg PO DAILY Label Comments: TAKE 1 TABLET BY MOUTH EVERY DAY clobetasol 0.05 % Lotion 1 applic TOPICAL 4X/DAY Ubrelvy 100 mg tablet 100 mg PO PRN PRN (Reason: Headache) Other Ambulatory Orders: 12 Lead EKG (Routine) Timeframe: [id number] Location: None Selected Ordered By: Dr. Angela See Referrals / Follow Up: Carolynn Huntley MD [Primary Care Provider] - Disposition Disposition (needs filled in before D/C Order can be placed): Home, Self Care
== END 2022-04-17 16:40 | disposition home or self-care (01) ==
LOC: SDC 11:28 → AC 11:28
PROVIDERS: Anesthesiology; PCP Pediatrics; Referring Provider Obstetrics & Gynecology; Visit Provider Obstetrics & Gynecology
PROC: 0UDB8ZZ Extraction of Endometrium, Via Natural or Artificial Opening Endoscopic (ICD-10-PCS; CPT 58558; principal; 2022-04-17 13:00)
DX: N85.00 Endometrial hyperplasia, unspecified (principal); M06.9 Rheumatoid arthritis, unspecified; E11.9 Type 2 diabetes mellitus without complications; N95.0 Postmenopausal bleeding; E78.00 Pure hypercholesterolemia, unspecified; J45.909 Unspecified asthma, uncomplicated; Z79.84 Long term (current) use of oral hypoglycemic drugs; Z79.899 Other long term (current) drug therapy
CPT/HCPCS: 58558; 00952; 36415; 80053; 81001; 81025; 82962; 85025; 86850; 86900; 86901; 88305; 93005; J7120; J2405

== ENCOUNTER → 2022-04-19 | Outpatient (CLI) | payer MEDICAID, SELFPAY | END | disposition home or self-care (01) | LOC: LABSPEC 09:50 | PROVIDERS: PCP Pediatrics; Referring Provider Obstetrics & Gynecology; Visit Provider Obstetrics & Gynecology | DX: R30.0 Dysuria (principal) | CPT/HCPCS: 87077; 87086; 87088; 87186 ==

== ENCOUNTER → 2022-09-25 | Outpatient (CLI) | payer MEDICAID, SELFPAY ==
--- NOTE | 2022-09-25 | CYSPIN_PTH ---
PATIENT: YOLY KIDD LOC: [facility] U#:[id number] AGE/SX: 57/F ROOM: RE09/25/[address]: Dr. Ashley Laurent MD : 1965 BED: DIS: 09/25/2022 SPEC #: [id number] RECD: 09/25/22 15:00 STATUS: KIM RENE #: [id number] ELIN: 09/25/22 00:[address]: Ashley Laurent DEPT: CYTOLOGY RECD BY: Malgorzata Peck ENTERED: 09/26/22 09:14 SP TYPE: CYSPIN FL OTHR DR: Dr. Carloynn Huntley MD Tissues: Urine Procedures: Pap Stain (control) Special Stain Group II Cytospin Fluid HEADER OPERATION: Not noted PRE-OP DIAGNOSIS: Gross hematuria TISSUE SUBMITTED: Urine for cytology DIAGNOSIS CYTOLOGY Urine for cytology (cytospin): Negative for high-grade urothelial carcinoma (NHGUC), Rolanda System Category II. Acute inflammation. See comment. SJ:saritha 09/26/2022 COMMENT Numerous organisms consistent with bacteria are also noted. The Rolanda System for urine cytology diagnostic categorization was used in the evaluation of this case. CYTOLOGY STUDY Slides are reviewed. CYTOLOGY GROSS Received is 20 ml of cloudy yellow fluid labeled with the patient's name and and designated per the requisition as urine. Submitted for cytology preparation. / saritha 09/26/2022 TC:2 CPT: 63220
[2022-09-25 18:14] LABS: Cytology, Body Fluid / CSF SEE PATHOLOGY REPORT
== END | disposition home or self-care (01) ==
PROVIDERS: PCP Pediatrics; Visit Provider Urology
DX: R31.0 Gross hematuria (principal)
CPT/HCPCS: 88108; 88313

== ENCOUNTER → 2022-09-28 | Outpatient (CLI) | payer MEDICAID, SELFPAY ==
--- NOTE | 2022-09-28 17:00 | CT_ITS ---
EXAM: CT ABDOMEN AND PELVIS WITHOUT AND WITH INTRAVENOUS CONTRAST CLINICAL INDICATION: UROGRAM HEMATURIA TECHNIQUE: Helically acquired images were obtained of the abdomen and pelvis without and with intravenous contrast. This CT exam was performed using one or more of the following dose reduction techniques: automated exposure control, adjustment of the mA and/or kV according to patient size, and/or use of iterative reconstruction technique. CONTRAST: IV 100mL Isovue-300 RADIATION DOSE: CTDIvol = 26.05 mGy, DLP = 4810.62 mGy-cm COMPARISON: No relevant prior studies available. FINDINGS: LOWER THORAX: Unremarkable. Lung bases are clear. No cardiomegaly. No significant pericardial effusion. ABDOMEN: LIVER: Hepatomegaly and fatty liver, the right lobe of the liver is 21.6 cm craniocaudal. GALLBLADDER AND BILE DUCTS: Cholecystectomy clips. Normal heart size, partially included. Unremarkable lung bases. The common duct appears normal considering cholecystectomy. PANCREAS: Unremarkable. No focal cystic or solid mass. SPLEEN: The spleen is 12.2 cm in length. ADRENALS: Unremarkable. No nodules. KIDNEYS AND URETERS: Urinary bladder is only mildly distended. The kidneys enhance normally. No hydronephrosis or stone. Normal renal excretion on delayed phase exam contrast and most of the ureters and bladder. One small simple-appearing cyst of the left kidney measuring 9 mm. Normal renal size and position. STOMACH AND BOWEL: Unremarkable. No stomach or bowel distention. No focal inflammatory change. No oral or rectal contrast is present. There is moderate fluid in the stomach. Mild fluid and gas in the small bowel. Moderate fluid in the right colon. Moderate stool and gas in the mid to distal colon and rectum. Patent mesenteric vessels. PELVIS: APPENDIX: Nonvisualized appendix, no pericecal inflammation. BLADDER: Unremarkable. REPRODUCTIVE: Unremarkable as visualized. No mass. ABDOMEN and PELVIS: INTRAPERITONEAL SPACE: Unremarkable. No ascites or other fluid collection. No free air. BONES/JOINTS: Moderate disc space narrowing at L5-S1 with vacuum disc and mild posterior spondylosis. No suspicious lytic or blastic abnormality. SOFT TISSUES: Unremarkable. No discrete abdominal or pelvic wall hernia. VASCULATURE: See above. LYMPH NODES: Unremarkable. No enlarged lymph nodes. CT/CT Abd/Pelvis W/WO Contrast IMPRESSION: Nonspecific findings. Small renal cyst. Otherwise normal renal enhancement and excretion. Hepatomegaly and fatty liver. Cholecystectomy. Nonvisualized appendix. Mildly prominent stomach, small bowel and colon contents. Electronically Signed: Jacey De Anda MD at 8:09 EDT ,
[2022-09-28 17:11] LABS: CREATININE FINGERSTICK < 0.9 mg/dL (0.55-1.02); EGFR FINGERSTICK > 60.0000 mL/min (>60)
== END | disposition home or self-care (01) ==
LOC: CT 16:41
PROVIDERS: PCP Pediatrics; Referring Provider Urology; Visit Provider Urology
DX: R31.0 Gross hematuria (principal); N39.0 Urinary tract infection, site not specified
CPT/HCPCS: 74178; Q9967; A4216

== ENCOUNTER → 2023-05-29 | Outpatient (CLI) | payer MEDICAID, SELFPAY ==
--- NOTE | 2023-05-29 18:37 | US_ITS ---
STUDY: RENAL ULTRASOUND - COMPLETE REASON FOR EXAM: Female, 58 years old. FLANK PAIN, UTI TECHNIQUE: Ultrasound evaluation of the kidneys was performed with real-time and static fortune-scale imaging. COMPARISON: None. FINDINGS: RIGHT KIDNEY: Normal location of the right kidney, which is normal in size. The right kidney measures 13.2 x 5.4 x 3.9 cm. There is a normal cortex of the right kidney. The renal cortex measures 1.4 cm. There is a simple 1.7 cm cyst. There are no right renal calculi. There is no right hydronephrosis. DISTAL RIGHT URETER: There is non-visualization of the distal right ureter. There is no demonstrated right ureterovesical junction calculus. There is a visualized right ureteral jet. LEFT KIDNEY: Normal location of the left kidney, which is normal in size. The left kidney measures 11.5 x 5.6 x 5.6 cm. There is a normal cortex of the left kidney. The renal cortex measures 1.8 cm. There is a simple 1.3 cm cyst . There is a 5 mm nonobstructing stone. There is no left hydronephrosis. DISTAL LEFT URETER: There is non-visualization of the distal left ureter. There is no demonstrated left ureterovesical junction calculus. There is a visualized left ureteral jet. AORTA: There is no elongation or tortuosity of the abdominal aorta. I.V.C.: The IVC is patent. BLADDER: The bladder is sonographically normal US/Kidney and Bladder IMPRESSION: No obstructive uropathy or suspicious solid renal lesion Simple bilateral renal cysts, no specific follow-up needed Nonobstructing left nephrolithiasis Electronically Signed: Timbo Lizama MD at 23:40 EST ,
== END | disposition home or self-care (01) ==
LOC: US 18:35
PROVIDERS: PCP Pediatrics; Referring Provider Urology; Visit Provider Urology
DX: R10.9 Unspecified abdominal pain (principal); N39.0 Urinary tract infection, site not specified
CPT/HCPCS: 76770

== ENCOUNTER → 2023-08-03 | Outpatient (CLI) | payer MEDICARE, MEDICAID, SELFPAY ==
--- NOTE | 2023-08-03 08:21 | CT_ITS ---
STUDY: CT Abdomen And Pelvis W/O Contrast Injection 08/04/2023 7:44 PM REASON FOR EXAM: Female, 58 years old. UTI TECHNIQUE: Transaxial images were obtained without oral contrast, and without intravenous contrast. Individualized dose optimization techniques were used for this CT. COMPARISON: 09/28/2022 CT FINDINGS: The visualized lung bases are unremarkable. The visualized portions of the heart are within normal limits. There is hepatomegaly with diffuse hepatic enlargement. There are surgical clips in the gallbladder fossa consistent with a prior cholecystectomy. Unremarkable spleen. Unremarkable pancreas. Unremarkable bilateral adrenal glands. No acute findings of the right kidney. No acute findings of the left kidney. Unremarkable visualized stomach. Unremarkable small intestine. Stool throughout the colon. There is non-visualization of the appendix. There are no acute findings of the abdominal aorta. Unremarkable inferior vena cava. Subcentimeter mesenteric lymph nodes. Unremarkable urinary bladder. Unremarkable abdominal wall. There are diffuse degenerative changes of the visualized lumbar spine. CT/Abdomen/Pelvis without Cont IMPRESSION: (NOT LISTED IN ORDER OF SIGNIFICANCE) Constipation. Enlarged liver. There are surgical clips in the gallbladder fossa consistent with a prior cholecystectomy. Other findings as above. Electronically Signed: Bijan Ponce MD at 19:46 EDT ,
== END | disposition home or self-care (01) ==
PROVIDERS: PCP Pediatrics; Referring Provider Urology; Visit Provider Urology
DX: N20.0 Calculus of kidney (principal); N39.0 Urinary tract infection, site not specified; R10.9 Unspecified abdominal pain
CPT/HCPCS: 74176

== ENCOUNTER → 2025-01-11 | Outpatient (CLI) | payer MEDICARE, MEDICAID, SELFPAY ==
[2025-01-13 09:08] LABS: HPV APTIMA, High Risk Negative (Negative)
== END | disposition home or self-care (01) ==
LOC: BWCLAB 11:09 → LABSPEC 11:13
PROVIDERS: PCP Pediatrics; Referring Provider Nurse Practitioner Family; Visit Provider Nurse Practitioner Family
DX: Z12.4 Encounter for screening for malignant neoplasm of cervix (principal)
CPT/HCPCS: 87624; 88175; G0145

== ENCOUNTER → 2025-01-27 | Outpatient (CLI) | payer MEDICARE, MEDICAID, SELFPAY ==
--- NOTE | 2025-01-27 15:30 | BI_ITS ---
EXAM: SCRN MAMM (CAD)W/COLLINS BILAT DATE: 01/27/2025 CLINICAL HISTORY: F, Age 60 y/o , SCREEN FOR BREAST CANCER TECHNIQUE: Procedure Code: [id number] Modality: MG Procedure: SCRN MAMM (CAD)W/COLLINS BILAT COMPARISON: Prior exam(s) were compared FINDINGS: TISSUE DENSITY: There are scattered areas of fibroglandular density. Bilateral Breast Mammographic Findings: No significant masses, calcifications or other abnormalities are identified. BI/SCRN MAMM (CAD)W/COLLINS BILAT IMPRESSION: No mammographic evidence of malignancy in either breast. OVERALL FINAL ASSESSMENT BI-RADS 1: NEGATIVE. RECOMMENDATION: Routine annual follow-up in 1 Year Additional Recommendation none A letter with findings and recommendations will be mailed to the patient. Reading Location: [id number]
== END | disposition home or self-care (01) ==
LOC: OPBI 15:02
PROVIDERS: PCP Pediatrics; Referring Provider Nurse Practitioner Family; Visit Provider Nurse Practitioner Family
DX: Z12.31 Encounter for screening mammogram for malignant neoplasm of breast (principal)
CPT/HCPCS: 77063; 77067